=== PATIENT | female | born 1975 | race Two or more races ===

== ENCOUNTER → 2017-04-21 17:47 | Outpatient (CLI) | payer OTHER ==
[~2017-04-21] VITALS: Ht 152.4 cm; Wt 72.6 kg
[~2017-04-21 17:47] MED LIST: BENADRYL25 MG PO; CATAFLAM50 MG PO; DICLOFENAC SODI50 MG PO; FLOVENT 44MCG7.9 GM IH; FLOVENT HFA10.6 GM; FLOVENT13 G1; GILTUSS TR TAB1 EACH PO; MEDROL4 MG PO; MOTRIN800 MG PO; NEURONTIN300 MG PO; PROVENTIL HFA6.7 GM; PROVENTIL HFA6.7 GM IH; PROVENTIL S2 MG/5 ML; PROVENTIL0.5 ML/2.5; PROVENTIL3 ML/2.5 M IH; SINGULAIR 10MG10 MG PO; SINGULAIR10 MG; SINGULAIR4 M1; ZYRTEC10 MG PO
== END | disposition home or self-care (01) ==
LOC: PPHC 17:47
DX: M54.5 Low back pain (principal)

== ENCOUNTER 2017-04-21 18:52 | Emergency (ER) | payer OTHER ==
[~2017-04-21] VITALS: Ht 157.5 cm; Wt 72.6 kg
[~2017-04-21 18:52] MED LIST changes: -DICLOFENAC SODI50 MG PO
[2017-04-21] MEDS ORDERED: DICLOFENAC SODI50 MG PO (22:39)
== END 2017-04-21 22:47 | disposition home or self-care (01) ==
LOC: ER 18:52
DX: M54.5 Low back pain (principal)

== ENCOUNTER 2017-09-18 09:50 | Outpatient (CLI) | payer OTHER ==
[~2017-09-18 09:50] MED LIST changes: +DICLOFENAC SODI50 MG PO
== END 2017-09-18 10:00 | disposition home or self-care (01) ==
LOC: LAB 09:50
DX: N91.2 Amenorrhea, unspecified (principal)

== ENCOUNTER 2018-03-13 10:48 | Emergency (ER) | payer OTHER ==
[~2018-03-13] VITALS: Ht 154.9 cm; Wt 86.2 kg
== END 2018-03-13 16:15 | disposition home or self-care (01) ==
LOC: ER 10:48
DX: R55 Syncope and collapse (principal)

== ENCOUNTER → 2018-09-16 09:23 | Outpatient (CLI) | payer OTHER | END | disposition home or self-care (01) | LOC: LAB 09:23 | DX: R05 Cough (principal); R50.9 Fever, unspecified ==

== ENCOUNTER 2018-10-27 15:39 | Emergency (ER) | payer OTHER ==
[~2018-10-27] VITALS: Ht 154.9 cm; Wt 86.2 kg
== END 2018-10-27 19:49 | disposition home or self-care (01) ==
LOC: ER 15:39
DX: R55 Syncope and collapse (principal); R42 Dizziness and giddiness; R07.89 Other chest pain

== ENCOUNTER 2018-11-20 16:06 | Outpatient (CLI) | payer OTHER | END 2018-11-20 16:14 | disposition home or self-care (01) | LOC: RAD 16:06 | DX: M25.521 Pain in right elbow (principal) ==

== ENCOUNTER 2019-01-09 17:11 | Emergency (ER) | payer OTHER ==
[~2019-01-09] VITALS: Ht 157.5 cm; Wt 99.3 kg
[2019-01-09] MEDS ORDERED: FLOVENT HFA12 G1 (17:35)
[2019-01-09] MEDS ORDERED: SINGULAIR5 MG (17:35)
[2019-01-09] MEDS ORDERED: NEURONTIN300 MG (17:35)
[2019-01-09] MEDS ORDERED: ULTRAM50 MG (17:35)
== END 2019-01-09 21:22 | disposition home or self-care (01) ==
LOC: ER 17:11
DX: M77.11 Lateral epicondylitis, right elbow (principal)

== ENCOUNTER 2019-03-04 15:35 | Emergency (ER) | payer OTHER ==
[~2019-03-04] VITALS: Ht 157.5 cm; Wt 86.2 kg
[~2019-03-04 15:35] MED LIST changes: +FLOVENT HFA12 G1; +NEURONTIN300 MG; +SINGULAIR5 MG; +ULTRAM50 MG
[2019-03-04] MEDS ORDERED: ZANAFLEX4 MG PO (15:45)
== END 2019-03-04 16:58 | disposition home or self-care (01) ==
LOC: ER 15:35
DX: M77.8 Other enthesopathies, not elsewhere classified (principal)

== ENCOUNTER 2019-04-27 08:19 | Emergency (ER) | payer OTHER ==
[~2019-04-27] VITALS: Ht 154.9 cm; Wt 86.2 kg
[~2019-04-27 08:19] MED LIST changes: +ZANAFLEX4 MG PO
== END 2019-04-27 17:21 | disposition home or self-care (01) ==
LOC: ER 08:19
DX: K57.90 Diverticulosis of intestine, part unspecified, without perforation or abscess without bleeding (principal); K29.70 Gastritis, unspecified, without bleeding

== ENCOUNTER 2019-07-01 08:19 | Emergency (ER) | payer OTHER ==
[~2019-07-01] VITALS: Ht 154.9 cm; Wt 81.6 kg
== END 2019-07-01 11:24 | disposition home or self-care (01) ==
LOC: ER 08:19
DX: B33.8 Other specified viral diseases (principal); B96.0 Mycoplasma pneumoniae [M. pneumoniae] as the cause of diseases classified elsewhere

== ENCOUNTER 2019-07-06 07:40 | Emergency (ER) | payer OTHER ==
[~2019-07-06] VITALS: Ht 154.9 cm; Wt 86.2 kg
[2019-07-06] MEDS ORDERED: ALBUTEROL0.63 MG/3 IH (08:19)
[2019-07-06] MEDS ORDERED: BUDEO.25 IH (08:20)
== END 2019-07-06 08:36 | disposition home or self-care (01) ==
LOC: ER 07:40
DX: B33.8 Other specified viral diseases (principal)

== ENCOUNTER 2019-08-20 08:03 | Outpatient (CLI) | payer OTHER ==
[~2019-08-20 08:03] MED LIST changes: +ALBUTEROL0.63 MG/3 IH; +BUDEO.25 IH
== END 2019-08-20 08:08 | disposition home or self-care (01) ==
LOC: LAB 08:03
DX: J11.1 Influenza due to unidentified influenza virus with other respiratory manifestations (principal)

== ENCOUNTER 2019-08-20 08:48 | Outpatient (CLI) | payer OTHER | END 2019-08-20 08:57 | disposition home or self-care (01) | LOC: RAD 08:48 | DX: M54.2 Cervicalgia (principal); R07.0 Pain in throat ==

== ENCOUNTER 2019-09-12 11:12 | Emergency (ER) | payer OTHER ==
[~2019-09-12] VITALS: Ht 154.9 cm; Wt 86.2 kg
[2019-10-03] MEDS ORDERED: SINGULAIR4 M1 PO (14:18)
[2019-10-03] MEDS ORDERED: FLOVENT HFA10.6 GM IH (14:19)
== END 2019-09-12 13:13 | disposition home or self-care (01) ==
LOC: ER 11:12
DX: S33.9XXA Sprain of unspecified parts of lumbar spine and pelvis, initial encounter (principal); W18.39XA Other fall on same level, initial encounter; Y93.B2 Activity, push-ups, pull-ups, sit-ups; Y92.69 Other specified industrial and construction area as the place of occurrence of the external cause; Y99.8 Other external cause status

== ENCOUNTER → 2019-10-03 | Emergency (ER) | payer OTHER ==
[~2019-10-03] VITALS: Ht 154.9 cm; Wt 90.7 kg
[~2019-10-03] MED LIST changes: +FLOVENT HFA10.6 GM IH; +SINGULAIR4 M1 PO
== END | disposition home or self-care (01) ==
LOC: ER 14:04
DX: I16.0 Hypertensive urgency (principal); I10 Essential (primary) hypertension; K29.60 Other gastritis without bleeding